=== PATIENT | male | born 1995 | race Caucasian/White ===

== ENCOUNTER 2017-01-28 18:33 | Emergency (ER) | payer SELFPAY ==
[2017-01-28 18:55] VITALS: BP 142/80; PULSE 82; TEMP 98.5; BMI 20.3
[2017-01-28] MEDS ORDERED: SODIUM CHLORIDE 1,000 ML IV STA (19:36)
[2017-01-28 20:01] LABS: BASOPHIL 0.6 % (0-2.0); EOSINOPHIL 1.7 % (0-4.5); MCH 30.3 pg (25.7-33.7); MCHC 32.7 g/dl (32.0-35.9); MEAN CELL VOLUME 92.8 fl (80-96); MEAN PLT VOLUME 8.4 fl (7.5-11.1); NEUTROPHILS 51.3 % (42.8-82.8); PLATELET COUNT 280 K/MM3 (134-434); RDW 13.7 % (11.9-15.9); WHITE BLOOD COUNT 6.8 K/mm3 (4.0-10.0)
[2017-01-28 20:04] LABS: URINE APPEARANCE CLEAR; URINE BILIRUBIN NEGATIVE (NEGATIVE); URINE BLOOD NEGATIVE (NEGATIVE); URINE COLOR STRAW; URINE GLUCOSE (UA) NEGATIVE (NEGATIVE); URINE KETONE NEGATIVE (NEGATIVE); URINE LEUK ESTERASE NEGATIVE (NEGATIVE); URINE NITRITE NEGATIVE (NEGATIVE); URINE PROTEIN NEGATIVE (NEGATIVE); URINE UROBILINOGEN NEGATIVE E.U./dl (0.2-1.0)
[2017-01-28 20:31] LABS: ALBUMIN 4.4 g/dl (3.4-5.0); ALK PHOS 80 U/L (45-117); ANION GAP 8 (8-16); BILIRUBIN,TOTAL 0.2 mg/dL (0.2-1.0); CALCIUM 9.1 mg/dL (8.5-10.1); CO2 28 mmol/L (21-32); COCKROFT - GAULT 112.45; GLUCOSE,RANDOM 87 mg/dL (74-106); SGOT/AST 21 U/L (15-37); SGPT/ALT 33 U/L (12-78); TOT PROT 7.6 g/dl (6.4-8.2)
--- NOTE | 2017-01-28 22:27 | PDOC ---
History of Present Illness - General Chief Complaint: Weakness Stated Complaint: WEAKNESS Time Seen by Provider: 01/28/17 19:10 History Source: Patient, Family, Java Developer With Security Clearance Used Exam Limitations: Language Barrier - History of Present Illness Initial Comments: 01/28/17 22:20 22yo Male patient with no significant past medical history presents to ED c/o dizziness, sweating, blurred vision, h/a, chills and hypotension. Family states patient became pale, dizzy and c/o h/a. Patient b/p was taken at home and found to be "low." He denies CP, Abd pain, n/v/d, fever, cough, congestion, back pain , diff breathing, rash, or any other complaints at this time. 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 No PCP. Timing/Duration: 4-6 hours Severity: mild Modifying Factors: worse with: cold therapy, eating, immobilization, medication , movement, rest, other Associated Symptoms: reports: diaphoresis, fever/chills, headaches, weakness. denies: denies symptoms, chest pain, cough, loss of appetite, malaise, nausea/ vomiting, rash, seizure, shortness of breath, syncope, other Aspirin Received prior to arrival: No: no aspirin today, unknown, 81 mg x 1, 81 mg x 2, 81 mg x 3, 81 mg x 4, 325 mg x 1, provided at home, provided by EMS, provided by ED [facility] Contraindications(Core Measure): No: Allergy, Other, Active Blding w/i 24 hrs., Plavix, Receiving Warfarin Past History - Travel Traveled outside of the country in the last 30 days: No Close contact w/someone who was outside of country & ill: No - Past Medical History Allergies/Adverse Reactions: Allergies Allergy/AdvReac Type Severity Reaction Status Date / Time No Known Allergies Allergy Verified 01/28/17 18:50 Home Medications: Ambulatory Orders NK [No Known Home Medication] 11/18/15 Thyroid Disease: No - Immunization History Immunization Up to Date: No - Psycho/Social/Smoking Cessation Hx Anxiety: No Suicidal Ideation: No Smoking History: Never smoked Have you smoked in the past 12 months: No Information on smoking cessation initiated: No Hx Alcohol Use: No Drug/Substance Use Hx: No Substance Use Type: None Review of Systems - Review of Systems Able to Perform ROS?: Yes Is the patient limited Kinyarwanda proficient: No Constitutional: Yes: Chills, Weakness. No: Fever Respiratory: No: Cough, Shortness of Breath, Stridor Cardiac (ROS): No: Chest Pain, Lightheadedness, Palpitations, Syncope ABD/GI: No: Diarrhea, Nausea, Poor Appetite, Poor Fluid Intake, Vomiting, Abdominal cramping : No: Dysuria, Flank Pain, Hematuria, Urgency Musculoskeletal: No: Back Pain Integumentary: Yes: Sweating. No: Bruising, Erythema Neurological: Yes: Headache. No: Seizure, Weakness, Unsteady Gait, Ataxia All Other Systems: Reviewed and Negative *Physical Exam - Vital Signs Last Vital Signs Temp Pulse Resp BP Pulse Ox 98.5 F 82 18 142/80 100 01/28/17 18:47 01/28/17 18:47 01/28/17 18:47 01/28/17 18:47 01/28/17 18:47 - Physical Exam General Appearance: Yes: Nourished, Appropriately Dressed. No: Apparent Distress, Mild Distress, Moderate Distress, Severe Distress HEENT: positive: EOMI, NICOLASA, Normal ENT Inspection, Normal Voice, Symmetrical, TMs Normal, Pharynx Normal. negative: Pharyngeal Erythema, Tonsillar Exudate, Tonsillar Erythema, TM Bulging, TM Dull, TM Erythema Neck: positive: Trachea midline, Normal Thyroid, Supple. negative: Rigid, Stridor, Lymphadenopathy (R), Lymphadenopathy (L) Respiratory/Chest: positive: Lungs Clear, Normal Breath Sounds. negative: Chest Tender, Respiratory Distress, Accessory Muscle Use, Labored Respiration, Rapid RR, Stridor, Wheezing Cardiovascular: positive: Regular Rhythm, Regular Rate Gastrointestinal/Abdominal: positive: Normal Bowel Sounds, Soft. negative: Distended, Guarding, Rebound, Tenderness Musculoskeletal: positive: Normal Inspection. negative: CVA Tenderness Extremity: positive: Normal Capillary Refill, Normal Inspection, Normal Range of Motion. negative: Pedal Edema, Swelling, Calf Tenderness, Erythema, Inflammation Integumentary: positive: Normal Color, Dry, Warm Neurologic: positive: making machine catcher II-XII NML intact, Fully Oriented, Alert, Normal Mood/ Affect, Normal Response, Motor Strength 5/5 ED Treatment Course - LABORATORY CBC & Chemistry Diagram: 01/28/17 19:57 01/28/17 19:57 - ADDITIONAL ORDERS Additional order review: Laboratory Results 01/28/17 01/28/17 19:57 19:57 Sodium 142 Potassium 4.2 Chloride 106 Carbon Dioxide 28 Anion Gap 8 BUN 14 Creatinine 1.0 Creat Clearance w eGFR > 60 Random Glucose 87 Calcium 9.1 Total Bilirubin 0.2 AST 21 ALT 33 Alkaline Phosphatase 80 Creatine Kinase 258 Creatine Kinase Index 0.7 CK-MB (CK-2) 1.814 Total Protein 7.6 Albumin 4.4 Urine Color Straw Urine Appearance Clear Urine pH 6.0 Urine Protein Negative Urine Glucose (UA) Negative Urine Ketones Negative Urine Blood Negative Urine Nitrite Negative Urine Bilirubin Negative Urine Urobilinogen Negative Ur Leukocyte Esterase Negative 01/28/17 19:57 RBC 4.32 MCV 92.8 MCHC 32.7 RDW 13.7 MPV 8.4 Neutrophils % 51.3 Lymphocytes % 38.0 Monocytes % 8.4 Eosinophils % 1.7 Basophils % 0.6 - RADIOLOGY Radiology Studies Ordered: Category Date Time Status HEAD CT WITHOUT CONTRAST [CT] Stat CT Scan 01/28/17 22:00 Ordered - Medications Given in the ED: ED Medications Discontinued Medications Generic Name Dose Route Start Last Admin Trade Name Freq PRN Reason Stop Dose Admin Sodium Chloride 1,000 mls @ 1,000 mls/hr 01/28/17 19:36 01/28/17 20:01 Normal Saline - IV 01/28/17 20:35 1,000 mls/hr ASDIR STA Administration *DC/Admit/Observation/Transfer Diagnosis at time of Disposition: Dehydration - Discharge Dispostion Disposition: HOME Condition at time of disposition: Improved Admit: No - Referrals Referrals: Vincent Olivas MD [Staff Physician] - - Patient Instructions Printed Discharge Instructions: DI for Dehydration -- Adult Additional Instructions: FOLLOW UP WITH YOUR PRIMARY CARE PROVIDER FOR FURTHER EVALUATION. STAY HYDRATED. YOU NEED TO BE SEEN BY A PHYSICIAN TO MONITOR YOUR HEALTH. Print Language: INDONESIAN
--- NOTE | 2017-01-29 14:06 | EKG ---
Test Reason : Blood Pressure : / mmHG Vent. Rate : 082 BPM Atrial Rate : 082 BPM P-R Int : 154 ms QRS Dur : 082 ms QT Int : 370 ms P-R-T Axes : 051 051 024 degrees QTc Int : 432 ms NORMAL SINUS RHYTHM NORMAL ECG NO PREVIOUS ECGS AVAILABLE Confirmed by LATISHA WHELAN MD ([id number]) on 01/29/2017 2:06:16 PM Referred By: Confirmed By:LATISHA WHELAN MD
== END 2017-01-29 00:34 | disposition home or self-care (01) ==
LOC: JER 18:33
PROC: 3E0337Z Introduction of Electrolytic and Water Balance Substance into Peripheral Vein, Percutaneous Approach (ICD-10-PCS; principal; 2017-01-28)
DX: E86.0 Dehydration (principal)
CPT/HCPCS: 36415; 70450-TC; 80053; 81003; 82550; 82553; 85025; 93005; 93010; 99283-25

== ENCOUNTER 2018-12-29 11:57 | Emergency (ER) | payer SELFPAY ==
[2018-12-29 12:10] VITALS: PULSE 74; BMI 26.0
[2018-12-29 12:56] LABS: PH,URINE 7.5 (5.0-8.0); URINE APPEARANCE CLEAR; URINE BILIRUBIN NEGATIVE (NEGATIVE); URINE COLOR YELLOW; URINE GLUCOSE (UA) NEGATIVE (NEGATIVE); URINE KETONE NEGATIVE (NEGATIVE); URINE LEUK ESTERASE NEGATIVE (NEGATIVE); URINE NITRITE NEGATIVE (NEGATIVE); URINE PROTEIN NEGATIVE (NEGATIVE); URINE UROBILINOGEN 0.2 mg/dL (0.2-1.0)
--- NOTE | 2018-12-29 13:09 | PDOC ---
History of Present Illness - General Chief Complaint: Pain, Acute Stated Complaint: ABD PAIN Time Seen by Provider: 12/29/18 12:12 History Source: Patient, Spouse ( present at bedside.) Exam Limitations: No Limitations - History of Present Illness Initial Comments: HPI: 23 y/o male presenting to [facility] ER complaining of lower abdominal pain for the past week. Pain increased in intensity over the past two days and briefly radiated to the R flank yesterday. Endorses associated dysuria and increased urinary frequency without hematuria or penile discharge. Endorses subjective fever and decreased PO intake. Denies h/o of similar symptoms. States pain is worse in the evening after returning home from work. No known sick contacts. Endorses monogamous sexual relationship. Single partner in past 3 months. Denies h/o of STDs. PCP: None Social Hx: - to woman - Works as a clinical program manager Medical Hx: - Pt denies past medical history. Denies prescription medications. Surgical Hx: - Pt denies past surgical history. Review of Systems: In addition to that documented in the HPI above, the additional ROS was obtained : Constitutional: Endorses subjective fevers Head: Denies vision changes ENMT: Denies sore throat CV: Denies chest pain Resp: Denies SOB GI: Endorses diarrhea (nonbloody) but denies vomiting : Per HPI MSK: Denies recent trauma Skin: Denies new rashes Neuro: Denies new numbness or tingling or weakness Endocrine: Denies polyuria Heme: Denies bleeding or bruising Physical Examination: Constitutional: Well-developed, well-nourished adult male in no acute distress or obvious discomfort. Found semi-fowlers on hospital bed. Alert and oriented x4. Answered all questions appropriately and completely. Speech was non-labored , non-pressured. Head: Normocephalic. No obvious external signs of trauma. Cardiovascular / Chest: Regular rate and regular rhythm. No murmur, rubs, clicks , or gallops. Peripheral pulses: radial pulses full. Respiratory: Breathing unlabored. Equal chest rise and fall. Clear to auscultation bilaterally. No stridor, no wheezing, no rhonchi. Gastrointestinal: abdomen is soft, non-tender, non-distended. No rebound, no guarding. No hepatosplenemegaly. No pulsatile masses. No overlying skin lesions or obvious signs of trauma. Neuro: Alert and oriented. Moving all four extremities spontaneously. Gait normal. Observed walking throughout the department unassisted without difficulty. Skin: Warm, dry, and intact. No bruising, rashes, or other lesions. : No R or L CVA tenderness. Psych: Affect: appropriate. Mood: normal. Male : Genital exam revealed normally developed male genitalia. Uncircumcised penis. No scrotal mass or tenderness, no hernias or inguinal lymphadenopathy. No perineal abnormalities are seen. No genital lesions or urethral discharge. RN chaperoned exam. MDM: *Reviewed vital signs, nursing notes, and prior visit documentation (if available). Previously healthy 23 y/o male presenting with bilateral lower quadrant abdominal pain with episode of radiation to R flank and diarrhea. Further endorses dysuria and increased urinary frequency. No endorses STD exposure or risky sexual behavior. Afebrile. Vitals unremarkable for hypotension or tachycardia. Physical exam as described above. No acute abdominal findings. Low suspicion for appendicitis, pyelonephritis, cystitis, epididymitis, or STD. UA unremarkable for pyuria, nitrites, or leukocyte esterase. Urine culture pending. GC/chlamydia amp pending. Call back placed. CBC unremarkable for leukocytosis. No significant electrolyte abnormalities. Normal renal function. Repeat abdominal exam remains unchanged from initial exam; no acute abdominal signs. Suspect pain is likely MSK secondary to pts occupation, especially as the pain is reportedly worse in the evening after work. Without acute abdominal signs, fever, or leukocytosis will not pursue imaging. Discussed laboratory results with pt. Answered all questions. Provided return precautions. Encouraged to return for worsening pain or more localizing pain. Pt expressed verbal understanding and agreement with plan to discharge home with outpatient follow up. Provided referral to resident clinic to establish primary care. Brendon Bender M.D., PGY1 Emergency Medicine Resident 12/29/18 14:36 Past History - Past Medical History Allergies/Adverse Reactions: Allergies Allergy/AdvReac Type Severity Reaction Status Date / Time No Known Allergies Allergy Verified 12/29/18 11:59 Home Medications: Ambulatory Orders NK [No Known Home Medication] 11/18/15 COPD: No Thyroid Disease: No Other medical history: denies - Immunization History Immunization Up to Date: No - Suicide/Smoking/Psychosocial Hx Smoking History: Never smoked Have you smoked in the past 12 months: No Hx Alcohol Use: No Drug/Substance Use Hx: No Substance Use Type: None *Physical Exam - Vital Signs Last Vital Signs Temp Pulse Resp BP Pulse Ox 98 F 74 16 121/74 99 12/29/18 12:01 12/29/18 12:01 12/29/18 12:01 12/29/18 12:01 12/29/18 12:01 ED Treatment Course - LABORATORY CBC & Chemistry Diagram: 12/29/18 13:35 12/29/18 13:35 - ADDITIONAL ORDERS Additional order review: Laboratory Results 12/29/18 12:42 Urine Color Yellow Urine Appearance Clear Urine pH 7.5 D Ur Specific [place] 1.007 L Urine Protein Negative Urine Glucose (UA) Negative Urine Ketones Negative Urine Blood Negative Urine Nitrite Negative Urine Bilirubin Negative Urine Urobilinogen 0.2 Ur Leukocyte Esterase Negative *DC/Admit/Observation/Transfer Diagnosis at time of Disposition: Lower abdominal pain - Discharge Dispostion Disposition: HOME Condition at time of disposition: Good Decision to Admit order: No - Referrals [place] [facility] [place] [facility] [place] - Patient Instructions Printed Discharge Instructions: DI for Abdominal Pain-Adult Additional Instructions: You were seen today for abdominal pain and diarrhea. Your blood and urine tests were normal. Your pain is likely muscular. Try and rest over the next several days and avoid heavy lifting. You can take over the counter Tylenol or Advil as needed for pain. Take as directed on the package insert. Do not exceed the recommended dosage. Please follow up with a primary care physician within the next week. I have placed a referral for you to see [place] [facility] [place] [facility] [place] [facility] [place]. You will need to call to make an appointment. The number is [phone]. The address is as follows: [address] [place] [address], [place] [address] Go to the nearest emergency department if your condition worsens or you feel like you need additional emergency evaluation. Print Language: LIBERIAN - Post Discharge Activity Forms/Work/School Notes: Back to Work
[2018-12-29 13:51] LABS: BASO % 0.5 % (0-2.0); EOS % 0.7 % (0-4.5); HEMOGLOBIN 14.4 GM/dL (11.7-16.9); MCH 30.6 pg (25.7-33.7); MCHC 33.6 g/dl (32.0-35.9); MEAN CELL VOLUME 91.1 fl (80-96); MEAN PLT VOLUME 8.5 fl (7.5-11.1); MONO % 7.7 % (3.8-10.2); NEUT % 67.1 % (42.8-82.8); PLATELET COUNT 331 K/MM3 (134-434); RBC 4.72 M/mm3 (4.00-5.60); RDW 13.1 % (11.9-15.9); WHITE BLOOD COUNT 7.4 K/mm3 (4.0-10.0)
[2018-12-29] MEDS ORDERED: IBUPROFEN 600 MG TABLET (FP) PO ONE ×2 (14:01→14:07)
[2018-12-29 14:08] LABS: ALBUMIN 4.8 g/dl (3.4-5.0); BILIRUBIN,TOTAL 0.6 mg/dL (0.2-1); CALCIUM 9.4 mg/dL (8.5-10.1); POTASSIUM 4.3 mmol/L (3.5-5.1)
[2018-12-29 14:28] VITALS: BP 134/67; TEMP 98.2
--- NOTE | 2018-12-29 18:13 | PDOC ---
Documentation entered by Brandy Harmon SCRIBE, acting as scribe for Glen Caicedo MD. Glen Caicedo MD: This documentation has been prepared by the Faustino talley Nirvannie, SCRIBE, under my direction and personally reviewed by me in its entirety. I confirm that the documentation accurately reflects all work, treatment, procedures, and medical decision making performed by me. Attending Attestation - Resident Resident Name: BenderBrendon - ED Attending Attestation I have performed the following: I have examined & evaluated the patient, The case was reviewed & discussed with the resident, I agree w/resident's findings & plan - HPI HPI: 12/29/18 13:18 The patient is a 23 year old male, with no significant past medical history, who presents to the emergency department with, 1 week of worsening lower quadrants abdominal pain with associated dysuria and diarrhea worsened after working. Patient notes an associated one episode of right flank pain. Patient is sexually active with one female partner. He denies any testicular pain or penile discharge. He denies any recent headache or dizziness. He denies any recent chest pain or shortness of breath. He denies any recent hematuria. Allergies: NKDA Past surgical history: None reported. Social History: Yard [employer]. Nonsmoker. Denies EtOH use and recreational drug use. - Physicial Exam PE: 12/29/18 13:59 GENERAL: The patient is awake, alert, and fully oriented, Nontoxic - in no acute distress. HEAD: Normocephalic, atraumatic. EYES: extraocular movements intact, sclera anicteric, conjunctiva clear. ENT: Normal voice, Moist mucous membranes. NECK: Normal range of motion, supple LUNGS: Breath sounds equal, clear to auscultation bilaterally. No wheezes, no rhonchi, no rales. HEART: Regular rate and rhythm, normal S1 and S2 without murmur, rub or gallop. ABDOMEN: Soft, no rebund/guarding, mild ttp mid epigastrium/rlq/llq without focality, neg ttp at mcburneys point, neg murphies EXTREMITIES: Normal range of motion, NEUROLOGICAL: No facial assymetry, Normal speech, PSYCH: Normal mood, normal affect. SKIN: Warm, Dry, normal turgor, - Medical Decision Making 12/29/18 13:02 23y M presents with 1 week of worsening b/l lower abd pain associated diarrhea, dysuria no testicular pain, bpr, melena, n/v, chills pain worse with movements pain occasionally radiates to the R flank ?msk pain - consider possible atypical appendicits ua does not reveal signs of infection motrin for pain will reassess 12/29/18 17:15 labs unremarkble without signs of luekocyotiss pt reassessed, feeling better will dc with pmd fu return precautions were dsicussed I discussed the physical exam findings, ancillary test results and final diagnoses with the patient. I answered all of the patient's questions. The patient was satisfied with the care received and felt comfortable with the discharge plan and treatment plan. The patient will call their primary care physician within 24 hours to arrange follow-up and will return to the Emergency Department with any new, persistent or worsening symptoms.
== END 2018-12-29 14:54 | disposition home or self-care (01) ==
LOC: JER 11:57
DX: R10.30 Lower abdominal pain, unspecified (principal)
CPT/HCPCS: 36415; 80053; 81003; 85025; 87086; 87491; 87591; 99283-25